=== PATIENT | male | born 1980 | race Caucasian/White ===

== ENCOUNTER 2018-02-24 14:20 | Observation (INO) | payer OTHER ==
[~2018-02-24] VITALS: Ht 180.3 cm; Wt 84.8 kg
[2018-02-24] VITALS (10 sets, daily range): BP systolic 119–154; BP diastolic 59–93
[2018-02-24 15:28] LABS: URINE BILIRUBIN NEGATIVE (Negative); URINE BLOOD 3+ (Negative); URINE CLARITY CLEAR; URINE COLOR YELLOW; URINE GLUCOSE-RANDOM NEGATIVE (Negative); URINE KETONES NEGATIVE (Negative); URINE LEUKOCYTES-REFLEX NEGATIVE (Negative); URINE NITRITE-REFLEX NEGATIVE (Negative); URINE PROTEIN 1+ (Negative); URINE UROBILINOGEN 0.2 E.U./dl (0.2-1.0)
[2018-02-24 15:44] LABS: AMP/METHAMP Negative (Negative); BARBITURATES Negative (Negative); BENZODIAZEPINES Negative (Negative); COCAINE Negative (Negative); METHADONE Negative (Negative); OPIATES Negative (Negative); PCP Negative (Negative); THC Negative (Negative)
[2018-02-24 15:47] LABS: HYALINE CASTS 0-3 Few /LPF (None Seen); MUCUS None Seen strn/LPF (None Seen); SQUAMOUS NONE SEEN /LPF (0-3); URINE RBC 3-10 Few /HPF (0-2); URINE WBC-REFLEX 0-5 Rare /HPF (0-5)
[2018-02-24 15:48] LABS: BACTERIA-REFLEX None Seen /HPF (None Seen); CRYSTALS None Seen /LPF (None Seen)
[2018-02-24 16:02] LABS: HEMATOCRIT 37.7 % (42.0-52.0); MCHC 34.5 g/dL (28.0-37.0); MCV 87.1 fL (80.0-100.0); MPV 8.2 fl. (7.2-11.1); NUCLEATED RBCS 0 /100WBC; PLATELET COUNT* 161 thou/uL (150-400); RBC 4.33 mil/uL (4.50-6.00); RDW-CV 14.1 % (10.5-14.5); WBC 8.1 thou/uL (4.0-11.0)
[2018-02-24 16:11] LABS: CALCIUM 8.5 mg/dL (8.5-10.1); CREATININE 1.2 mg/dL (0.6-1.3); POTASSIUM 3.9 mmol/L (3.5-5.1)
[2018-02-24 16:18] LABS: ALBUMIN 3.7 g/dL (3.4-5.0); TOTAL BILIRUBIN 0.6 mg/dL (<0.1-1.0); TOTAL PROTEIN 7.1 g/dL (6.4-8.2); TROPONIN-I LEVEL 0.16 ng/mL (<0.06)
[2018-02-24 16:32] LABS: ABSOLUTE LYMPHOCYTES 0.4 thou/uL (0.8-5.3); ABSOLUTE MONOCYTES 0.7 thou/uL (0.0-1.2)
[2018-02-24 16:33] LABS: PLATELET ESTIMATE ADEQUATE
[2018-02-24 17:02] LABS: NT-PRO BRAIN NAT PEPTIDE 165 pg/mL (<300)
[2018-02-24 17:07] LABS: APTT 24.8 Seconds (25.0-31.3); PROTIME 10.1 Seconds (9.20-11.50)
--- NOTE | 2018-02-24 17:35 | NUR ---
PT HAD A SEIZURE THAT LASTED APPROXIMATLY 2 MIN. STARTING AT 1732.
[2018-02-25] VITALS (15 sets, daily range): BP systolic 110–143; BP diastolic 39–86
--- NOTE | 2018-02-25 00:05 | NUR ---
PT ADMITTED TO ICU ROOM 4 AT 2015 FOR ETOH WITHDRAWEL AND WITNESSED SEIZURE ACTIVITY. PT HAD WITNESSED SEIZURE IN ED. PT'S SIGNIFICANT OTHER STATES PT HAD SEIZURES X4 AT HOME, THE FIRST ONE AT 0430. SHE REPORTS BECOMING AFRAID AND CALLED EMS. PT LETHARGIC AND SOMULANT UPON ARRIVAL TO ICU. PT AROUSES TO TOUCH AND NAME. PT FOLLOWS COMMANDS AND RESPONDS TO QUESTIONS. PT'S CIWA SCORE 10-15. PRN ATIVAN Q 30 MINUTES ORDERED PER CIWA PROTOCOL. HEALTH HISTORY PROVIDED BY PT'S SIGNIFICANT OTHER MEE MARIA E. SHE REPORTS PT JUST RELEASED FROM [facility] A LITTLE MORE THAN A WEEK AGO AND HAS BEEN DRINKING DUE TO ANXIETY OVER ADJUSTING TO REGULAR LIFE. MEE REPORTS PT IS HIV POSITIVE. NO HOME MEDICATIONS LISTED. SIGNIFICANT OTHER PROVIDED TEACHING REGARDING DETOX SYMPTOMS AND TREATMENT. SIGNIFICANT OTHER STAYING IN ICU WAITING ROOM. PT ON BED REST WITH BED ALARM ON, SEIZURE PADS ON BED. DR GASCA NOTIFIED REGARDING ORAL TEMPERATURE AT 101.3. LAB VALUES AND UA RESULTS REPORTED. CIWA SCORE REPORTED. PT GIVEN PRN TYLENOL, ADDITIONAL ORDERS RECIEVED.
[2018-02-25 04:17] LABS: ABSOLUTE LYMPHOCYTES 0.8 thou/uL (0.8-5.3); ABSOLUTE MONOCYTES 0.5 thou/uL (0.0-1.2); BASOPHILS 0.7 %; EOSINOPHILS 0.3 %; HEMATOCRIT 39.2 % (42.0-52.0); HEMOGLOBIN 13.4 gm/dL (14.0-18.0); LYMPHOCYTES 18.7 %; MCH 30.3 pg (26.0-34.0); MCHC 34.2 g/dL (28.0-37.0); MCV 88.6 fL (80.0-100.0); MONOCYTES 12.1 %; MPV 7.8 fl. (7.2-11.1); NUCLEATED RBCS 0 /100WBC; PLATELET COUNT* 141 thou/uL (150-400); POLYS 68.2 %; RBC 4.42 mil/uL (4.50-6.00); RDW-CV 14.2 % (10.5-14.5); WBC 4.4 thou/uL (4.0-11.0)
[2018-02-25 04:40] LABS: CALCIUM 8.3 mg/dL (8.5-10.1); CREATININE 1.2 mg/dL (0.6-1.3); MAGNESIUM 2.3 mg/dL (1.8-2.4); POTASSIUM 3.4 mmol/L (3.5-5.1); TROPONIN-I LEVEL 0.1 ng/mL (<0.06)
--- NOTE | 2018-02-25 05:40 | NUR ---
PT'S CIWA SCORE 10-18 THROUGHOUT NIGHT. PT RECIEVING IV ATIVAN WITH GOOD RESULTS. NO SEIZURE ACTIVITY DURING SHIFT. PT'S HEART RATE 120-130 UPON ARRIVAL TO ICU. NIGHT PROGRESSED HEART RATE 70-80. BLOOD PRESSURE WITHIN NORMAL LIMITS DURING SHIFT. PT'S TMAX 101.3, PT GIVEN PRN TYLENOL PER DR GASCA ORDERS. TEMP AT 0400 98.4. IV FLUIDS INFUSING AT 125/HR VIA SALINE LOCK. PT PLEASANT AND COOPERATIVE, FOLLOWS COMMANDS. PT HAS MODERATE TREMORS, ORIENTED TO PERSON, PLACE AND SITUATION. NO ACUTE CHANGEDS DURING SHIFT, WILL CONTINUE TO MONITOR CLOSELY.
--- NOTE | 2018-02-25 08:21 | NUR ---
DR CHOUDHURY TO SEE PATIENT AND WILL DISCHARGE PATIENT. PATIENT STATES HE HAS RESOURCES FOR FOLLOWUP AND SUPORT
--- NOTE | 2018-02-25 08:21 | NUR ---
4042 ASSUMED CARE OF PATIENT. PLEASE SEE DOCUMENTED ASSESSMENT. TONGUE IS SWOLLEN
[2018-02-25] MEDS ORDERED: CHLORDIAZEPOXID10 MG PO (08:22)
[2018-02-25] MEDS ORDERED: VITAMIN B-1100 M1 PO (08:22)
--- NOTE | 2018-02-25 10:04 | NUR ---
DISCHARGED AMBULATORY
--- NOTE | 2018-02-25 13:43 | EKG ---
[place] [address] ELECTROCARDIOGRAM REPORT Name: MERRY SARMIENTO Room: [address]#: [id number] Admission: 02/24/18 Attend Phys: Zari Du Discharge: 02/25/18 Date of : 80 Report #: [id number] THIS REPORT FOR: //name// [facility] ED Test Date: 2018-02-24 Test Time: 14:25:28 Pat Name: MERRY SARMIENTO Department: Room: [facility] Gender: M Broadcast Systems Engineer: CASSY : 1980 Requested By: Cheryl Best Order Number: [id number] MD: Hong Silverman Measurements Intervals [place] Rate: 108 P: -20 NM: 147 QRS: 2 QRSD: 83 T: 4 QT: 316 QTc: 424 Interpretive Statements Sinus tachycardia Anteroseptal infarct, old No previous ECG available for comparison Electronically Signed On 02-25-2018 13:43:38 WOOD CARVING MACHINE OPERATOR by Hong Silverman [email or web address] <ELECTRONICALLY SIGNED> By: Hong Silverman MD, [facility] 02/25/18 1343 1425 1425 Hong Silverman MD, [facility] /EPI
== END 2018-02-25 10:00 | disposition home or self-care (01) ==
LOC: M.ERS 14:20 → M.TBA-ER 18:23 → M.ICU 18:23
PROVIDERS: Personal Emergency Response Attendant; ADMIT Internal Medicine
DX: F10.230 Alcohol dependence with withdrawal, uncomplicated (principal); R56.9 Unspecified convulsions; S01.512A Laceration without foreign body of oral cavity, initial encounter; E87.6 Hypokalemia; M62.82 Rhabdomyolysis; N17.9 Acute kidney failure, unspecified; M54.5 Low back pain; X58.XXXA Exposure to other specified factors, initial encounter; Y93.89 Activity, other specified; Y92.89 Other specified places as the place of occurrence of the external cause

== ENCOUNTER 2018-03-16 04:54 | Inpatient (IN) | payer OTHER ==
[~2018-03-16] VITALS: Ht 177.8 cm; Wt 88.8 kg
[2018-03-16] VITALS (15 sets, daily range): BP systolic 124–162; BP diastolic 80–108
--- NOTE | ~2018-03-16 | EEG ---
[address] [address] EEG STUDY REPORT Name: SARMIENTOMERRY Juliann Room: [address] IN .#: [id number] Admission: 03/16/18 Attend Phys: Lashawn Gonzales MD Discharge: Date of : 80 Report #: [id number] THIS REPORT FOR: //name// CC: [facility] physician/PCP Lashawn Gonzales DATE OF SERVICE: 03/17/2018 This patient is intubated. He had multiple seizures. They are probably alcohol withdrawal seizures. We do not have any facility to run continuous EEG. Therefore, the EEG was repeated before weaning trial can be given to exclude the possibility of any epileptiformic discharges, which may be going on. Background activity in this patient's EEG is about 8 Hz and 30 microvolt. No active epileptiform activity was noticed during this record. EEG continued to be slow throughout the record. IMPRESSION: Moderately abnormal EEG because it is slow on both sides. That is a nonspecific abnormality, which can occur with encephalopathy, effect of psychotropic medication, etc. It is a nonspecific finding. Clinical correlation is recommended. By: 0849 [id number] Lopez MD /nt
--- NOTE | ~2018-03-16 | EEG ---
[address] [address] EEG STUDY REPORT Name: SARMIENTOMERRY Juliann Room: [address] IN [facility]#: [id number] Admission: 03/16/18 Attend Phys: Lashawn Gonzales MD Discharge: Date of : 80 Report #: [id number] THIS REPORT FOR: //name// CC: [facility] physician/PCP Lashawn Gonzales DATE OF SERVICE: 03/16/2018 This patient is being evaluated for seizure. EEG was done by placing the electrodes by standard 10-20 system of electrode placement. Both referential and sequential montages were used for recording. Background activity in this patient's EEG goes up to about 7-8 Hz and 30 microvolt. Photic stimulation is unremarkable. IMPRESSION: This patient's EEG is intermixed with moderate amount of slowing on both sides. That is a nonspecific abnormality, which can occur with encephalopathy, dementia, effect of psychotropic medications. No active epileptiform activity was noticed during this record. Thank you very much for this referral. By: 0950 Timothy Lopez MD /nt
--- NOTE | ~2018-03-16 | CON ---
[address] [address] CONSULTATION Name: MERRY SARMIENTO Room: [address] IN .R.#: [id number] Admission: 03/16/18 Attend Phys: Lashawn Gonzales MD Discharge: Date of : 80 Report #: [id number] THIS REPORT FOR: //name// CC: [facility] physician/PCP Lashawn Gonzales DATE OF SERVICE: 03/16/2018 HISTORY OF PRESENT ILLNESS: This is a 37-year-old male patient who was evaluated by me for seizure. The patient is unable to provide any history and in fact is intubated at the moment. He was admitted after the girlfriend noticed that he had seizures little after 1:00 a.m. today. It was a classical grand mal seizure. She did not seek any medical attention at that time because he had seizures in the past, but subsequently he had another seizure for which he was brought to Emergency Room subsequently. The patient has a pretty significant history of alcohol intake. He had stopped drinking alcohol. It is not clear when it happened, but happened before seizure. He was admitted here in February. At that time, he also had multiple seizures. As I understand, he was not here for too long because he wanted to go that time. He has been admitted to [facility] also for same kind of a seizure, which were in relation to alcohol withdrawal. He does not use any street drugs. REVIEW OF SYSTEMS: Indicate that this patient has respiratory problem. There is some question of HIV in the record. He is on vent at the moment. There is a question of aspiration. He does not work, apparently was in care home according to girlfriend, but I did not go more detail into that history, but she is pretty certain that he does not use any other drugs and he does not smoke. Records indicate he also had some trouble with kidney problems in the past. That is all the 14-point review of system I can carry out in this patient, which I tried. PAST MEDICAL HISTORY: Positive for similar seizures. FAMILY HISTORY: Positive for possible seizure. SOCIAL HISTORY: He drinks extensively. PHYSICAL EXAMINATION: GENERAL: His examination is not possible at the moment, he is sedated, he is on a vent. He does not appear to have any meningeal sign. CARDIOVASCULAR: Cardiac examination is unremarkable. VITAL SIGNS: Blood pressure is 160/102, respirations 19, pulse is 96, temperature is 100.4 it was normal before. LABORATORY DATA: Indicated normal sodium, his potassium is trace low at 3.3. His creatinine is somewhat high. We will check his magnesium. He did have a CT scan of the head last time as well as at [place] [address] CONSULTATION Name: MERRY SARMIENTO Room: [address] IN [facility]#: [id number] Admission: 03/16/18 Attend Phys: Lashawn Gonzales MD Discharge: Date of : 80 Report #: [id number] unremarkable. IMPRESSION: 1. Alcohol-related seizures. 2. This patient most likely has lower seizure threshold in the baseline. He gets seizure much faster than people with alcohol withdrawal seizure. It has been a pretty persistent problem. RECOMMENDATIONS: 1. The most important thing for this patient is to stop drinking alcohol. 2. He should take seizure precaution and then he cannot drive at least for 6 months and after that it needs to be decided by his physician. 3. We will get more workup done once he is extubated. 4. Presently, we will get an EEG done and observe to see how he does. We will do some extra blood workup, which I ordered. Thank you very much for this referral. By: 1010 1214Pesteban Lopez MD /nt
[~2018-03-16 04:54] MED LIST: CHLORDIAZEPOXID10 MG PO; VITAMIN B-1100 M1 PO
--- NOTE | 2018-03-16 05:45 | NUR ---
PT STARTED HAVING RIGID TONIC-CLONIC MOVEMENTS WITNESSED BY STAFF, AND S/O WHILE SITTING AT THE BEDSIDE. PT RECEIVED MEDICATIONS TO COUNTERACT THE SEIZURE ACTIVITY, BUT WOULD NOT FULLY BECOME RELAXED FROM THE ORDERED DOSE OF MEDICATIONS HE WAS ORDERED TO RECEIVE. DR CHAIREZ THEN REQUESTED TO SET PT UP FOR SEDATION, AND ENDOTRACHEAL INTUBATION.
[2018-03-16 06:01] LABS: ABSOLUTE BASOPHILS 0.1 thou/uL (0.0-0.2); ABSOLUTE LYMPHOCYTES 1.8 thou/uL (0.8-5.3); ABSOLUTE MONOCYTES 0.9 thou/uL (0.0-1.2); ABSOLUTE NEUTROPHILS 7.2 thou/uL (1.6-8.1); BASOPHILS 0.8 %; EOSINOPHILS 0.1 %; HEMATOCRIT 44.9 % (42.0-52.0); HEMOGLOBIN 14.5 gm/dL (14.0-18.0); LYMPHOCYTES 17.7 %; MCH 30.2 pg (26.0-34.0); MCHC 32.3 g/dL (28.0-37.0); MCV 93.3 fL (80.0-100.0); MONOCYTES 8.8 %; MPV 8.1 fl. (7.2-11.1); NUCLEATED RBCS 0 /100WBC; PLATELET COUNT* 195 thou/uL (150-400); POLYS 72.6 %; RBC 4.81 mil/uL (4.50-6.00); RDW-CV 14.4 % (10.5-14.5)
[2018-03-16 06:16] LABS: AMP/METHAMP Negative (Negative); BARBITURATES Negative (Negative); BENZODIAZEPINES Negative (Negative); COCAINE Negative (Negative); METHADONE Negative (Negative); OPIATES Negative (Negative); PCP Negative (Negative); THC Negative (Negative); URINE BILIRUBIN NEGATIVE (Negative); URINE BLOOD 3+ (Negative); URINE CLARITY CLEAR; URINE COLOR YELLOW; URINE GLUCOSE-RANDOM NEGATIVE (Negative); URINE KETONES NEGATIVE (Negative); URINE LEUKOCYTES-REFLEX NEGATIVE (Negative); URINE NITRITE-REFLEX NEGATIVE (Negative); URINE PROTEIN TRACE (Negative); URINE SPECIFIC GRAVITY >= 1.030 (1.005-1.030); URINE UROBILINOGEN 0.2 E.U./dl (0.2-1.0)
[2018-03-16 06:25] LABS: BACTERIA-REFLEX 1-9 Few /HPF (None Seen); CASTS None Seen /LPF (None Seen); CRYSTALS None Seen /LPF (None Seen); MUCUS 4-6 Moderate strn/LPF (None Seen); SQUAMOUS 0-3 Few /LPF (0-3); URINE RBC 3-10 Few /HPF (0-2); URINE WBC-REFLEX 0-5 Rare /HPF (0-5)
[2018-03-16 06:28] LABS: ALBUMIN 3.7 g/dL (3.4-5.0); ALKALINE PHOSPHATASE 117 U/L (46-116); ANION GAP 25 mmol/L (7-16); BUN 17 mg/dL (7-18); CALCIUM 9.4 mg/dL (8.5-10.1); CHLORIDE 98 mmol/L (98-107); CO2 14 mmol/L (21-32); CREATININE 1.4 mg/dL (0.6-1.3); GLUCOSE 140 mg/dL (70-99); POTASSIUM 3.3 mmol/L (3.5-5.1); SGOT 64 U/L (15-37); SGPT 42 U/L (30-65); SODIUM 137 mmol/L (136-145); TOTAL BILIRUBIN 0.8 mg/dL (<0.1-1.0); TOTAL PROTEIN 7.7 g/dL (6.4-8.2); TROPONIN-I LEVEL <0.06 ng/mL (<0.06)
[2018-03-16 10:10] LABS: BE -2.3 mmol/L (-2 to +3); HCO3 22.6 mmol/L (22.0-26.0); PCO2 39.2 mmHg (35.0-45.0); pH 7.378 (7.340-7.450)
[2018-03-16 10:11] LABS: PO2 226.1 mmHg (75.0-100.0)
--- NOTE | 2018-03-16 11:05 | NUR ---
PT ADMITTED THIS MORNING, ALCOHOL WITHDRAWL SEIZURE, PT WAS INTUBATED IN THE E.D. SPOKE WITH GIRLFRIEND MEE AT BEDSIDE. SHE SAID PT HAS HAD A DRINKING PROBLEM FOR YEARS, HE HAS BEEN SOBER FOR EXTENDED PERIODS OF TIME BUT ALWAYS GOES BACK TO DRINKING. SHE SAID HE WAS INCARCERATED, JUST RECENTLY RELEASED. PT HAS A HEAD ATHLETIC TRAINER THRU [facility] [employer], THAT HEAD ATHLETIC TRAINER HELPS WITH MEDICATION ASSISTANCE, COUNSELING, ETC. ASHLEE SAYS SHE HAS SEEN PT HAVE SEIZURES WHEN HE WAS SOBER, BUT HE DOESN'T ROUTINELY TAKE ANY MEDICATIONS. DISCUSSED ROLE OF CASE MGT, WILL CONTINUE TO FOLLOW.
--- NOTE | 2018-03-16 11:27 | NUR ---
0820 ASSUMED CARE OF PATIENT. PLEASE SEE DOCUMENTED ASSESSMENT. PT IS ON VENTILATOR. DR MARTINEZ HERE TO SEE PATIENT.
--- NOTE | 2018-03-16 11:28 | NUR ---
RIGHT BASILIC VESSEL ACCESSED FOR 5 MONTENEGRIN TRIPLE LUMEN PICC. LINE PRE-TRIMMED TO 41 CM AND ADVANCED TO THE ZERO ANANT WITH NO RESISTANCE MET. UPPER ARM CIRDUMFERENCE ABOVE INSERTION SITE= 13". SHERLOCK MAGNET AND 3CG CONFRIMATION OF TIP TERMINATION AT THE CAVOATRIAL JUNCTION. STYLET REMOVED, INSERTION SITE DRESSED AND REPORT GIVEN TO BRENNEN ROSENBERG.
--- NOTE | 2018-03-16 11:29 | NUR ---
1030 PICC PLACED AND LOCATION SECURED. SIGNIFICANT OTHER UPDATED ON PLAN OF CARE
--- NOTE | 2018-03-16 12:54 | EKG ---
[place] [address] ELECTROCARDIOGRAM REPORT Name: MERRY SARMIENTO Room: [address] ADM IN .R.#: [id number] Admission: 03/16/18 Attend Phys: Lashawn Gonzales MD Discharge: Date of : 80 Report #: [id number] THIS REPORT FOR: //name// [facility] ED Test Date: 2018-03-16 Test Time: 05:04:46 Pat Name: MERRY SARMIENTO Department: Room: [address] Gender: M Gas Adjuster: : 1980 Requested By: Cheryl Best Order Number: [id number] Cedrick MD: Clarke Irene Measurements Intervals [place] Rate: 105 P: 48 TX: 148 QRS: 25 QRSD: 94 T: 10 QT: 334 QTc: 442 Interpretive Statements Sinus tachycardia Baseline wander in lead(s) II Compared to ECG 02/24/2018 14:25:28 Myocardial infarct finding no longer present Electronically Signed On 03-16-2018 12:53:59 MOLD INSPECTOR by Clarke Irene [email or web address] <ELECTRONICALLY SIGNED> By: Clarke Irene MD, [facility] 03/16/18 1253 0504 0504 Clarke Irene MD, [facility] /EPI
[2018-03-16] MEDS ORDERED: IBUPROFEN 800800 M1 PO (16:21)
[2018-03-16] MEDS ORDERED: TENOFOVIR DISO300 MG PO (16:23)
[2018-03-16] MEDS ORDERED: PREZCOBIX 8001 EACH PO (16:24)
[2018-03-16] MEDS ORDERED: LAMIVUDINE300 MG PO (16:26)
[2018-03-16] MEDS ORDERED: KEPPRA1000 MG PO (16:27)
[2018-03-16] MEDS ORDERED: DULCOLAX5 MG PO (16:28)
--- NOTE | 2018-03-16 16:30 | NUR ---
SIGNIFICANT OTHER BROUGHT HOME MEDICATIONS. EXCEPT FOR IBUPROFEN THEY ARE IN UNOPENED SEALED PACKAGES FROM [employer]. PATIENT HAS NOT BEEN TAKING MEDS. PATIENT ALSO NEVER FILLED SCRIP GIVEN HIM LAST TIME FOR THIAMINE AND LIBRIUM
--- NOTE | 2018-03-16 18:37 | NUR ---
PATIENT ADMITTED THIS AM WITH SEIZURE ACTIVITY. INTUBATED AND SEDATED. NO FURTHER SEIZURE ACTIVITY. EEG DONE. SEN BY CONSULTS. FEBRILE THIS AFTERNOON. LESS TACHYCARDIA. SIGNIFICATN OTHER HERE MOST OF THE DAY
--- NOTE | 2018-03-16 18:54 | NUR ---
1730 MESSAGE SENT TO HOSPITALIST REGARDING ELEVATED TEMERATURE AND PATIENT STATUS
[2018-03-17] VITALS (15 sets, daily range): BP systolic 109–141; BP diastolic 60–85
[2018-03-17 05:18] LABS: HEMATOCRIT 40.1 % (42.0-52.0); HEMOGLOBIN 13.4 gm/dL (14.0-18.0); MCHC 33.4 g/dL (28.0-37.0); MCV 89.9 fL (80.0-100.0); NUCLEATED RBCS 0 /100WBC; RBC 4.46 mil/uL (4.50-6.00); WBC 9.2 thou/uL (4.0-11.0)
--- NOTE | 2018-03-17 05:35 | NUR ---
PATIENT PROGRESSING TOWARDS GOALS. REMAINS ON PROPOFOL AND VERSED. WITHDRAWLS TO ORAL CARE AND PAIN. PT NO LONGER FEBRILE NOW PT TEMP 98.0. NO LONGER TACHY BUT NORMAL SINUS RHYTHM. PT RECEIVED FULL BED BATH WITH LINEN CHANGE. SPOKE WITH JOHNY SANDERSON LAST NIGHT AND THIS A.M UPDATED ON CURRENT PT CONDITION. VOICED UNDERSTANDING. PT BED TO LOWEST POSITION. SEIZURE PRECAUTIONS IN PLACE NO SEIZURE ACTIVITY NOTICED. WILL CONTINUE TO MONITOR.
[2018-03-17 05:37] LABS: BE -0.8 mmol/L (-2 to +3); HCO3 24.7 mmol/L (22.0-26.0); PCO2 44.3 mmHg (35.0-45.0); PO2 119.1 mmHg (75.0-100.0); pH 7.365 (7.340-7.450)
[2018-03-17 05:43] LABS: ALBUMIN 2.8 g/dL (3.4-5.0); CALCIUM 8.3 mg/dL (8.5-10.1); CREATININE 1.5 mg/dL (0.6-1.3); POTASSIUM 3.5 mmol/L (3.5-5.1); TOTAL BILIRUBIN 0.5 mg/dL (<0.1-1.0); TOTAL PROTEIN 6.3 g/dL (6.4-8.2)
[2018-03-17 06:14] LABS: ABSOLUTE LYMPHOCYTES 0.6 thou/uL (0.8-5.3); ABSOLUTE MONOCYTES 0.3 thou/uL (0.0-1.2); ABSOLUTE NEUTROPHILS 8.3 thou/uL (1.6-8.1)
[2018-03-17 06:16] LABS: PLATELET ESTIMATE DECREASED
[2018-03-17 06:17] LABS: ANISOCYTOSIS 1+; POIKILOCYTOSIS 1+
[2018-03-17 06:19] LABS: PLATELET COUNT* 117 thou/uL (150-400)
[2018-03-17 10:36] LABS: CD4:CD8 1.1 (1.0-5.0)
--- NOTE | 2018-03-17 12:15 | CON ---
[facility] [address] [place] [address] CONSULTATION Name: JESSE SARMIENTO Room: [address] IN M.R.#: [id number] Admission: 03/16/18 Attend Phys: Lashawn Gonzlaes MD Discharge: Date of : 80 Report #: [id number] THIS REPORT FOR: //name// CC: [facility] physician/PCP Lashawn Gonzales DATE OF SERVICE: 03/16/2018 ATTENDING PHYSICIAN: Sebastian Bledsoe M.D. REASON FOR EVALUATION: Intractable seizures in a patient with apparent HIV infection. HISTORY OF PRESENT ILLNESS: Chart reviewed, patient examined. This 37-year-old gentleman actually was hospitalized earlier this month with history of seizures. This is felt to be secondary to alcohol withdrawal. He is known to have excessive ethanol use, was recently discharged from detention about a month ago. He was discharged, in first hospitalization on 02/25, he was readmitted in extremis. He did have to be intubated with essentially status epilepticus seizure. He is undergoing EEG. His significant other is present. She does confirm that he is HIV positive, although cannot give us more details. She notes his medicines are at home, she will bring those in. She is not aware of who was treating him either. She is not aware of any previous lumbar puncture. She notes has had a longstanding history of seizures dating back before she was friends that was attributed to alcohol withdrawal issues. On evaluation, he was noted to have an absolute lymphocyte count of 1800. She is unaware of any fevers. Does have history of pneumonia in the past and apparently has received the Pneumovax. At this point, he is not responsive on heavy doses of propofol. Unable to give any additional history. ALLERGIES: None known. MEDICATIONS: Include enoxaparin, Zosyn, ipratropium and albuterol inhaler, pantoprazole, multivitamin, thiamine. PAST MEDICAL HISTORY: History of HIV infection and seizures, acute kidney injury, history of depression, history of pneumonias. SOCIAL HISTORY: Smokes cigarettes. Apparently, no illicit drug use, daily ethanol. FAMILY HISTORY: Noncontributory. REVIEW OF SYSTEMS: Not obtainable. PHYSICAL EXAMINATION: [place] [address] CONSULTATION Name: JESSE SARMIENTO Room: [address]#: [id number] Admission: 03/16/18 Attend Phys: Lashawn Gonzales MD Discharge: Date of : 80 Report #: [id number] GENERAL: Appears to be reasonably well nourished, well developed. He is lying supine. He has ET, NG tube in place. VITAL SIGNS: Temperature 100.4, pulse 115, respirations 19, blood pressure 151/85. SKIN: Warm, dry. NECK: Supple, not able to get a good view of his oropharynx. EYES: Pupils reactive. HEART: Tachycardic, regular. LUNGS: Diminished breath sounds. Few scattered crackles. ABDOMEN: Soft, nontender, nondistended, no peritoneal signs. GENITOURINARY AND RECTAL: Deferred. LABORATORY DATA: TSH is borderline elevated at 6.322. Most recent ABG: PH 7.378. pCO2 of 39.2, pO2 of 226.1, on 80%. Lactic acid 1.3. CT of the head showed no acute process or intracranial abnormality. Electrolytes: Sodium 137, potassium 3.3, chloride 98, bicarbonate is 14, anion gap elevated at 25, BUN and creatinine 17 and 1.4, glucose of 140. AST of 64, ALT of 42. Albumin 3.7, total protein of 7.7. Urinalysis 0-5 white cells. ASSESSMENT: Seizures in the setting of an ethanol and human immunodeficiency virus. The latter has been attributed to the cause of the seizures, which may well be the case. We will try to obtain some additional information including medicines he is on. I presume he was taking them in detention. We will check a CD count, viral load at this point. At this point, he is likely too unstable to undergo lumbar puncture, but I think that may well be reasonable diagnostic testing to do. Supportive therapy, try to wean off support as allowed. Discussed with his significant other. <ELECTRONICALLY SIGNED> By: Jesse Olivares MD 03/17/18 1215 1253 1518Jolani Olivares MD /nt
--- NOTE | 2018-03-17 13:48 | NUR ---
PATIENT SEDATED ON VENT. REQUIRES FREQENT SEDATION. KNEES WRAPPED BY WOUND NURSE. DR EDWARDS HELD WEANING TRIAL.
--- NOTE | 2018-03-17 17:46 | NUR ---
REPORT RECEIVED FROM SHAKIRA ARROYO. ASSESSMENT CHARTED. AFEBRILE. INTUBATED AND SEDATED. TITRATED OFF VERSED GTT TODAY. PROPOFOL GTT IS THE ONLY SEDATION GOING AT THIS TIME. VITAL SIGNS STABLE. EEG PERFORMED TODAY. NO SEIZURE ACTIVITY TODAY. POSSIBLE TTT TOMORROW. WILL CONTINUE TO MONITOR.
[2018-03-18] VITALS (15 sets, daily range): BP systolic 107–153; BP diastolic 59–93
[2018-03-18 04:05] LABS: CMV IgM Abs <30.0 AU/mL (0.0-29.9)
--- NOTE | 2018-03-18 06:35 | NUR ---
REPORT RECEIVED FROM OFF GOING SHIFT, CARE ASSUMMED. PT REMAINS ON VENTILATOR WITH SETTING OF AC12, PEEP 5, TV 550, FIO2 35%. ETT 8.0 22 AT LIP. ARMIJO INTACT AND DRAINING DK GREEN URINE TO BEDSIDE BAG. MONITORS INTACT WITH ALARMS SET. VSS AND NO ACUTE CHANGES DURING SHIFT. WHEN SEDATION DECREASED PT WILL START MOVING HEAD AND TRYING TO MOVE ARMS. WILL CONTINUE TO MONITOR.
[2018-03-18 09:43] LABS: BE -0.5 mmol/L (-2 to +3); HCO3 24.4 mmol/L (22.0-26.0); PO2 107.9 mmHg (75.0-100.0); pH 7.393 (7.340-7.450)
--- NOTE | 2018-03-18 10:00 | NUR ---
GIRLFRIEND AT BEDSIDE. PT TO BE EXTUBATED THIS MORNING. CASE MGT TO CONTINUE TO FOLLOW.
--- NOTE | 2018-03-18 12:47 | CON ---
[address] [address] CONSULTATION Name: MERRY SARMIENTO Room: [address] IN M.R.#: [id number] Admission: 03/16/18 Attend Phys: Lashawn Gonzales MD Discharge: Date of : 80 Report #: [id number] THIS REPORT FOR: //name// CC: [facility] physician/PCP Lashawn Gonzales REASON FOR CONSULTATION: Respiratory failure, ventilator management. HISTORY OF PRESENT ILLNESS: The patient was intubated and on sedation during my visit, did not participate in history. Discussed with the nursing staff and reviewed medical records. This is a 37-year-old male patient with history of seizures. Apparently, he was at this facility back in early 02/2018, when he presented after several days of ethanol pint at that time. He had seizures the day before hospitalization during the last visit, which was 02/24/2018 and it was felt was secondary to withdrawal seizure. Per records, he had seizure workup in the past and felt the seizures were related to alcohol withdrawal. He was admitted and observed at that time. He was brought back to this facility in the industrial psychology teacher hour tonight by EMS for seizures. Apparently, he had 2 seizures around midnight and another at 4:00 a.m., apparently related to alcohol withdrawal. He was able to tell the ER physician, the last drink was 2 days ago and he reported dizziness, but he had no pain and apparently was alert, oriented during initial presentation; however, he developed more seizures and he had to be intubated. At the time of my visit, he was on assist control ventilation, FiO2 of 70%, tolerating the vent well. He was on both propofol at 80 mcg and Versed of 6 mg. REVIEW OF SYSTEMS: Unobtainable. The patient is intubated, on sedation. SOCIAL HISTORY: Apparently, the patient has known history of alcohol abuse, 12-pack per day and a pint at minimum. Per the record, he is not a smoker. ALLERGIES: No known drug allergies. HOME MEDICATIONS: The last time he was discharged on thiamine and chlordiazepoxide. PAST MEDICAL HISTORY: Alcohol withdrawal seizures, acute renal failure in the past. PAST SURGICAL HISTORY: Unobtainable. PHYSICAL EXAMINATION: VITAL SIGNS: During my visit, his blood pressure was 150/90, O2 saturation on the monitor 100%, temperature 36.5. GENERAL: Young man, looks his stated age, intubated and on sedation, on the vent, tolerating the vent well. HEAD: Normocephalic, [place] [address] CONSULTATION Name: MERRY SARMIENTO Room: [address]#: [id number] Admission: 03/16/18 Attend Phys: Lashawn Gonzales MD Discharge: Date of : 80 Report #: [id number] EYES: Pupils pinpoint and reactive to light. Not pale, no jaundice. External ear looks healthy and normal. Nasal cavity, patent passages. Oral cavity: ET tube in place. NECK: Nontender. Full range of movement. CHEST: Air movement heard bilaterally, some coarse breathing. No wheezes. HEART: S1, S2, no murmur. CHEST: On inspection, no deformity. ABDOMEN: Benign, soft, lax, nontender, positive bowel sounds. No masses felt, no rebound, no rigidity. LOWER EXTREMITIES: No edema, no calf tenderness. MUSCULOSKELETAL: Normal inspection. SKIN: Normal for age and race, no rash. LYMPHATIC: No palpable lymph node. PSYCHIATRIC: Mood and affect could not be evaluated. NEUROLOGIC: He is sedated. LABORATORY DATA: His chest x-ray done in the ER showed the ET tube in good position. No pneumothorax or infiltrate. CT head did not show acute pathology. His white blood count 10, hemoglobin 14.5, platelet of 195. His creatinine is 1.4 with a BUN of 17, bicarbonate 14, potassium 3.3, sodium 137. Creatine kinase 761. His urine drug screen was negative. No blood alcohol detected in his blood. His HIV serology is pending. IMPRESSION: 1. Acute respiratory failure. 2. Intubated for airway protection. 3. Intractable seizures. 4. Alcohol withdrawal. 5. Alcohol abuse. 6. Seizure secondary to alcohol withdrawal. 7. Acute renal failure. 8. Electrolyte abnormalities. PLAN: At this point, I would continue the patient on the current sedation plan. Keep him sedated until he is evaluated by Neurology. Once Neurology evaluates him and they clear him to wean sedation, we will start weaning sedation and monitor his mental status. I will place him on scheduled nebulization treatments. He is empirically on Zosyn. We need a followup ABG and chest x-ray and we need to titrate his oxygen down as tolerated. Depending on his mental status, seizure activity and Neurology's input, we will decide the appropriate time to start weaning him off sedation, start vent weaning trials. [address] [address] CONSULTATION Name: MERRY SARMIENTO Room: [address] [facility] IN [facility].#: [id number] Admission: 03/16/18 Attend Phys: Lashawn Gonzales MD Discharge: Date of : 80 Report #: [id number] Thank you for the consult. <ELECTRONICALLY SIGNED> By: Bryan Garcia MD 03/18/18 1247 0904 0943Bryan Garcia MD /nt
--- NOTE | 2018-03-18 13:26 | NUR ---
RECEIVED REPORT FROM SHAKIRA RICHEY. ASSESSMENT CHARTED. PT ON PROPOFOL THIS AM. TTT COMPLETED AND PROPOFOL GTT OFF AT THAT TIME. PT TOLERATED WELL AND WAS EXTUBATED AT 1028. PT BECAME COMBATIVE AND THREATENED TO PUNCH ME AND THE MS AT THAT TIME. PHYSICAN NOTIFIED AND PT PLACED ON CIWA PROTOCOL AND GIVEN HALDOL AND ATIVAN. GIRLFRIEND AT BEDSIDE AND COOPERATIVE. WILL CONTINUE TO MONITOR
[2018-03-18 14:11] LABS: HIV 1 AB Positive (Negative); HIV 2 AB Negative (Negative); HIV-1/HIV-2 ANTIBODY Reactive (Non Reactive)
[2018-03-19] VITALS (14 sets, daily range): BP systolic 122–177; BP diastolic 75–114
[2018-03-19 06:21] LABS: NUCLEATED RBCS 0 /100WBC; PLATELET COUNT* 119 thou/uL (150-400); WBC 4.7 thou/uL (4.0-11.0)
[2018-03-19 06:25] LABS: HEMATOCRIT 36.6 % (42.0-52.0); HEMOGLOBIN 12.1 gm/dL (14.0-18.0); MCH 29.9 pg (26.0-34.0); MCHC 33.1 g/dL (28.0-37.0); MCV 90.3 fL (80.0-100.0); MPV 8.5 fl. (7.2-11.1); RBC 4.05 mil/uL (4.50-6.00)
[2018-03-19 06:26] LABS: CALCIUM 8.9 mg/dL (8.5-10.1); POTASSIUM 3.2 mmol/L (3.5-5.1)
[2018-03-19 06:54] LABS: ABSOLUTE BASOPHILS 0.1 thou/uL (0.0-0.2); ABSOLUTE LYMPHOCYTES 0.4 thou/uL (0.8-5.3); ABSOLUTE MONOCYTES 0.2 thou/uL (0.0-1.2); ABSOLUTE NEUTROPHILS 3.9 thou/uL (1.6-8.1); ATYPICAL LYMPHS 3 %; METAMYELOCYTES 2 %; PLATELET ESTIMATE ADEQUATE
--- NOTE | 2018-03-19 07:09 | NUR ---
Pt in 4-point soft restraints for mafority of shift. Released ankle restraints at 0305, then wrist restraints at 0600. Pt oriented to self and situation, but disoriented to place and time. Pt drowsy; speech difficult to understand, though improved toward end of shift. Pt impulsive at times, movements are slow. Pt states he wants to leave, but after some convincing from staff pt states, "I will stay until my girlfriend comes." VSS, though BP elevated at 140s-160s/80s-100s. CIWA = 5 due to disorientation. No c/o pain or nausea. On RA. Will continue to monitor.
--- NOTE | 2018-03-19 08:58 | NUR ---
9065 ASSUMED CARE OF PATIENT. SEE DOCUMENTED ASSESSMENT. PT IS RESTLESS AND UNRESTRAINED. PULLS OFF PULSE OXIMETER CONSTATNLY HE FIDGETS WITH HIS HAND. NO TREMORS NOTED
--- NOTE | 2018-03-19 09:20 | NUR ---
DR GASCA TO SEE PATIENT AND WANTS HIM TO STAY IN ICU TODAY. PT IS IMPULSIVE AND CURSING, SAYS HE WANTS TO LEAVE. GIVEN FULL LIQUIDS AND NO COUGHING. MEDICATED WITH ATIVAN
--- NOTE | 2018-03-19 10:40 | NUR ---
PT EXTUBATED YESTERDAY. SPOKE WITH GIRLFRIEND, PT MUMBLING, NOT COHERENT. GAVE GIRLFRIEND LIST OF ALCOHOL TREATMENT OPTIONS/COUNSELING OPTIONS. 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 PT WAS SAYING EARLIER HE WANTED TO LEAVE, GIRLFRIEND SAID THE ONLY PLACE HE HAS TO GO IS HOME WITH HER, AND SHE IS NOT TAKING HIM OUT OF HERE.
[2018-03-19 14:42] LABS: CALCIUM 8.7 mg/dL (8.5-10.1); MAGNESIUM 1.5 mg/dL (1.8-2.4); POTASSIUM 3.5 mmol/L (3.5-5.1)
--- NOTE | 2018-03-19 18:00 | NUR ---
PATIENT MAKING SOME PROGRESS TOWARDS GOALS. SEE CIWA SCORING. NO SEIZURE ACTIVITY. REMAINS ON ROOM AIR. ARMIJO CATHETER REMOVED. ELECTROLYTES REPLACED. DIET RESUMED WITH NOT MUCH APPETITE. AFEBRILE. HAS PERIODS OF AGITATION AND OUTBURST WHEN THREATENING TO LEAVE AND PULL EVERYTHING OUT. SCURITY NOTIFIED ONCE BUT REMAINS OUT OF RESTRAINTS. SIGNIFICANT OTHER PRESENT.
--- NOTE | 2018-03-19 18:58 | NUR ---
QUAN GAVE PATIENT SOME OF HER PEPSI WHICH HE PROMPTLY THREW UP. MEDICATED FOR NAUSEA
[2018-03-19 20:42] LABS: MAGNESIUM 1.6 mg/dL (1.8-2.4); POTASSIUM 3.4 mmol/L (3.5-5.1)
[2018-03-20] VITALS (12 sets, daily range): BP systolic 125–161; BP diastolic 69–107
[2018-03-20 04:49] LABS: CALCIUM 8.7 mg/dL (8.5-10.1); POTASSIUM 3.5 mmol/L (3.5-5.1)
--- NOTE | 2018-03-20 07:23 | NUR ---
Pt rested well for most of shift. VSS. CIWA 8 at beginning of shift. Pt verbally belligerent at times, but redirects with with respectful but direct and assertive communication from staff. Pt inquired about girlfriend on multiple occasions, and accusatory of her whereabouts at times. Attempted to assure pt that girlfriend inquires of pt status via phone at least twice overnight, and that visiting hours restrict her access overnight. Pt also expressed dissatisfaction with being in "detox this long." States he has been here for a week, although pt has been informed that this is his 4th night here. Incontinent of urine on 3 occasions, but used urinal by himself at 0600. Will continue to monitor.
[2018-03-20 09:13] LABS: HEMOGLOBIN 12.6 gm/dL (14.0-18.0); MCHC 33.2 g/dL (28.0-37.0); MCV 90.4 fL (80.0-100.0); MPV 9.1 fl. (7.2-11.1); NUCLEATED RBCS 0 /100WBC; PLATELET COUNT* 157 thou/uL (150-400); RBC 4.21 mil/uL (4.50-6.00); RDW-CV 13.4 % (10.5-14.5); WBC 3.2 thou/uL (4.0-11.0)
[2018-03-20 10:33] LABS: ABSOLUTE EOSINOPHILS 0.1 thou/uL (0.0-0.7); ABSOLUTE LYMPHOCYTES 0.4 thou/uL (0.8-5.3); ABSOLUTE MONOCYTES 0.6 thou/uL (0.0-1.2); ABSOLUTE NEUTROPHILS 2.1 thou/uL (1.6-8.1); ANISOCYTOSIS 1+; PLATELET ESTIMATE ADEQUATE; POIKILOCYTOSIS 1+
--- NOTE | 2018-03-20 16:28 | NUR ---
PT ASSESSMENT CHARTED. VSS THROUGHOUT SHIFT. PT UP WITH ASSISTANCE IN THE [place] TO WALK. HE REMAINED AGGITATED THROUGHOUT SHIFT. HE WAS TALKED INTO STAYING BY STAFF AND GIRLFRIEND BUT WOKE UP THIS AFTERNOON AGGITATED AND WANTING TO LEAVE AGAIN. RISKS HAVE BEEN GONE OVER WITH PATIENT BY MD AND NURSING STAFF. PT STILL WISHES TO LEAVE AGAINST MEDICAL ADVICE. FORM WAS SIGNED AND MD NOTIFIED. PT IS ALERT AND ORIENTED X4.
== END 2018-03-20 16:20 | disposition left against medical advice (07) | DRG 208 ==
LOC: M.ERS 04:54 → M.TBA-ER 06:45 → M.ICU 06:45 → M.TBA-ER 08:18 → M.ICU 08:18
PROVIDERS: Internal Medicine; Personal Emergency Response Attendant; Specialist; ADMIT Family Medicine
PROC: 0BH17EZ Insertion of Endotracheal Airway into Trachea, Via Natural or Artificial Opening (ICD-10-PCS; principal; 2018-03-16)
PROC: 05HY33Z Insertion of Infusion Device into Upper Vein, Percutaneous Approach (ICD-10-PCS; principal; 2018-03-16)
PROC: 5A1945Z Respiratory Ventilation, 24-96 Consecutive Hours (ICD-10-PCS; principal; 2018-03-16)
DX: J96.00 Acute respiratory failure, unspecified whether with hypoxia or hypercapnia (principal); G92 Toxic encephalopathy; B20 Human immunodeficiency virus [HIV] disease; F10.231 Alcohol dependence with withdrawal delirium; N17.9 Acute kidney failure, unspecified; R56.9 Unspecified convulsions; D69.6 Thrombocytopenia, unspecified; Z53.21 Procedure and treatment not carried out due to patient leaving prior to being seen by health care provider; F32.9 Major depressive disorder, single episode, unspecified; F17.210 Nicotine dependence, cigarettes, uncomplicated; Z91.19 Patient's noncompliance with other medical treatment and regimen; Z82.0 Family history of epilepsy and other diseases of the nervous system